=== PATIENT | female | born 1955 | race Caucasian/White ===

== ENCOUNTER 2018-03-03 03:47 | Emergency (ER) | payer OTHER ==
[~2018-03-03] VITALS: Ht 167.6 cm; Wt 102.3 kg
[~2018-03-03 03:47] MED LIST: BIEST CREAM TOP; CHOL2000 PO; FLAX1CAP4 PO; MAGN400C PO; MULT-1085 PO; OMEG500C PO; PROGESTERONE CREAM TOP; TESTOSTERONE CREAM TOP; TURM500C7 PO; UBID10CA7 PO; ZOLM5TAB9 PO
[2018-03-03 04:49] LABS: BASOPHILS % (AUTO) 0.6 % (0-1); EOSINOPHILS # (AUTO) 0.1 X10'3 (0-0.9); EOSINOPHILS % (AUTO) 2.5 % (0-6); HEMOGLOBIN 14.9 g/dl (12.0-16.0); LYMPHOCYTES # (AUTO) 1.9 X10'3 (1.1-4.8); LYMPHOCYTES % (AUTO) 40.2 % (21-51); MEAN CORPUSCULAR HEMOGLOBIN 31.6 PG (27.0-31.0); MEAN CORPUSCULAR HGB CONC 35.5 % (33.0-36.5); MEAN CORPUSCULAR VOLUME 89.2 FL (78-98); MEAN PLATELET VOLUME 6.7 FL (7.4-10.4); MONOCYTES # (AUTO) 0.6 X10'3 (0-0.9); MONOCYTES % (AUTO) 12.5 % (2-12); NEUTROPHILS # (AUTO) 2.1 X10'3 (1.8-7.7); NEUTROPHILS % (AUTO) 44.2 % (42-75); PLATELET COUNT 280 X10'3 (140-440); RED BLOOD COUNT 4.71 X10'6 (4.20-5.60); WHITE BLOOD COUNT 4.8 X10'3 (4.5-11.0)
[2018-03-03 04:52] LABS: COLOR,URINE YELLOW (Yellow); GLUCOSE, URINE NEGATIVE (Neg); KETONES,URINE NEGATIVE (Neg); LEUKOCYTE ESTERASE ,URINE SMALL (Neg); NITRITES, URINE POSITIVE (Neg); OCCULT BLOOD,URINE MODERATE (Neg); PH,URINE 5.5 (4.8-8.0); PROTEIN,URINE NEGATIVE (Neg); UROBILINOGEN,URINE 0.2 E.U/dL (0.2-1.0)
[2018-03-03 04:56] LABS: CLARITY,URINE SLIGHTLY CLOUDY (Clear); UA COLLECTION TYPE CLN CATCH MIDSTREAM
[2018-03-03 05:00] LABS: PARTIAL THROMBOPLASTIN TIME 26 SECONDS (22-32); PROTHROMBIN TIME 10.4 SECONDS (9.0-12.0); WBC,URINE 30-50 /HPF (0-4)
[2018-03-03 05:01] LABS: BACTERIA,URINE 4+ /HPF (Neg); SQUAMOUS EPITHELIAL CELL,UR FEW /LPF (FEW)
[2018-03-03 05:03] LABS: ALANINE AMINOTRANSFERASE 37 U/L (12-78); ALBUMIN 3.7 G/DL (3.4-5.0); ALBUMIN/GLOBULIN RATIO 0.9 (1.1-1.5); ALKALINE PHOSPHATASE 85 IU/L (46-116); ANION GAP 13 (8-16); ASPARTATE AMINO TRANSFERASE 18 U/L (10-37); BILIRUBIN,TOTAL 0.5 MG/DL (0.1-1.0); BLOOD UREA NITROGEN 13 MG/DL (7-18); BUN/CREATININE RATIO 16.3 (6.6-38.0); CALCIUM 9.8 MG/DL (8.5-10.1); CHLORIDE 105 MMOL/L (99-107); GLUCOSE 129 MG/DL (70-104); LIPASE 111 U/L (73-393); POTASSIUM 3.6 MMOL/L (3.5-5.1); SODIUM 142 MMOL/L (135-145); TOTAL PROTEIN 7.9 G/DL (6.4-8.2); eGFR 72 ML/MIN
[2018-03-03] MEDS ORDERED: NITR100C6 PO (05:45)
[2018-03-03 06:01] VITALS: BP 172/75
== END 2018-03-03 06:03 | disposition home or self-care (01) ==
LOC: ER 03:47
DX: K42.9 Umbilical hernia without obstruction or gangrene (principal); N30.00 Acute cystitis without hematuria; G43.909 Migraine, unspecified, not intractable, without status migrainosus; Z88.8 Allergy status to other drugs, medicaments and biological substances; Z90.710 Acquired absence of both cervix and uterus; Z79.899 Other long term (current) drug therapy
CPT/HCPCS: 36415; 74176; 80053; 81001; 83690; 85025; 85610; 85730; 87077; 87088; 87186; 99285

== ENCOUNTER 2018-03-10 10:34 | Outpatient (CLI) | payer OTHER ==
[~2018-03-10 10:34] MED LIST changes: +NITR100C6 PO
[2018-03-10 12:23] LABS: BASOPHILS % (AUTO) 0.6 % (0-1); EOSINOPHILS # (AUTO) 0.2 X10'3 (0-0.9); EOSINOPHILS % (AUTO) 2.1 % (0-6); HEMATOCRIT 41.3 % (35.0-45.0); HEMOGLOBIN 14.4 g/dl (12.0-16.0); LYMPHOCYTES # (AUTO) 2.9 X10'3 (1.1-4.8); LYMPHOCYTES % (AUTO) 38.9 % (21-51); MEAN CORPUSCULAR HEMOGLOBIN 31.2 PG (27.0-31.0); MEAN CORPUSCULAR HGB CONC 34.7 % (33.0-36.5); MEAN CORPUSCULAR VOLUME 89.8 FL (78-98); MEAN PLATELET VOLUME 7.4 FL (7.4-10.4); MONOCYTES # (AUTO) 0.5 X10'3 (0-0.9); MONOCYTES % (AUTO) 6.2 % (2-12); NEUTROPHILS # (AUTO) 3.9 X10'3 (1.8-7.7); NEUTROPHILS % (AUTO) 52.2 % (42-75); PLATELET COUNT 352 X10'3 (140-440); RED CELL DISTRIBUTION WIDTH 12.5 % (11.5-14.5); WHITE BLOOD COUNT 7.5 X10'3 (4.5-11.0)
[2018-03-10 12:52] LABS: ALANINE AMINOTRANSFERASE 46 U/L (12-78); ALBUMIN 3.9 G/DL (3.4-5.0); ALKALINE PHOSPHATASE 87 IU/L (46-116); ANION GAP 12 (8-16); ASPARTATE AMINO TRANSFERASE 21 U/L (10-37); BILIRUBIN,TOTAL 0.6 MG/DL (0.1-1.0); BLOOD UREA NITROGEN 14 MG/DL (7-18); BUN/CREATININE RATIO 20.6 (6.6-38.0); C-REACTIVE PROTEIN 0.36 MG/DL (0.0-0.5); CALCIUM 9.7 MG/DL (8.5-10.1); CHLORIDE 106 MMOL/L (99-107); CHOL/HDL RATIO 4.5 (0.00-4.99); CHOLESTEROL 209 MG/DL (0-200); CREATININE 0.68 MG/DL (0.40-0.90); GLUCOSE 108 MG/DL (70-104); HDL CHOLESTEROL 46 MG/DL (35-60); LDL CHOLESTEROL 133 MG/DL (50-100); POTASSIUM 3.6 MMOL/L (3.5-5.1); SODIUM 142 MMOL/L (135-145); TOTAL CARBON DIOXIDE 23.8 MMOL/L (24-32); TOTAL PROTEIN 7.9 G/DL (6.4-8.2); TRIGLYCERIDES 148 MG/DL (20-135); eGFR 87 ML/MIN
[2018-03-11 09:47] LABS: PARATHYROID HORMONE 34.9 PG/ML (11-67)
== END 2018-03-10 23:59 | disposition home or self-care (01) ==
LOC: LAB 10:34
PROVIDERS: ATTEND Family Medicine
DX: E55.9 Vitamin D deficiency, unspecified (principal); E78.5 Hyperlipidemia, unspecified; M54.5 Low back pain; R74.8 Abnormal levels of other serum enzymes
CPT/HCPCS: 36415; 80053; 80061; 82306; 83970; 84439; 84443; 85025; 85651; 86140

== ENCOUNTER 2018-03-24 06:03 | Day surgery (SDC) | payer OTHER ==
[2018-03-23 15:26] LABS: UA COLLECTION TYPE NON-SPECIFIED
[2018-03-23 15:27] LABS: CLARITY,URINE CLEAR (Clear); COLOR,URINE YELLOW (Yellow); GLUCOSE, URINE NEGATIVE (Neg); KETONES,URINE NEGATIVE (Neg); LEUKOCYTE ESTERASE ,URINE NEGATIVE (Neg); NITRITES, URINE NEGATIVE (Neg); OCCULT BLOOD,URINE SMALL (Neg); PH,URINE 5.5 (4.8-8.0); PROTEIN,URINE NEGATIVE (Neg); UROBILINOGEN,URINE 0.2 E.U/dL (0.2-1.0)
[2018-03-23 15:54] LABS: BACTERIA,URINE 1+ /HPF (Neg); MUCUS STRANDS FEW /LPF (Neg); RBC,URINE NONE SEEN /HPF (0-2); SQUAMOUS EPITHELIAL CELL,UR FEW /LPF (FEW); WBC,URINE 0-4 /HPF (0-4)
[~2018-03-24] VITALS: Ht 167.6 cm; Wt 99.8 kg
[2018-03-24] VITALS (13 sets, daily range): BP systolic 123–158; BP diastolic 55–76
[~2018-03-24 06:03] MED LIST changes: -BIEST CREAM TOP; -CHOL2000 PO; -FLAX1CAP4 PO; -MAGN400C PO; +METH500C6 PO; -MULT-1085 PO; +NAPR220C15 PO; +NITR100C11; -NITR100C6 PO; -OMEG500C PO; -PROGESTERONE CREAM TOP; -TESTOSTERONE CREAM TOP; -TURM500C7 PO; -UBID10CA7 PO; +VERA120T96; +ceFAZolin inj. 2,000 MG in normal saline 100ml IV soln 100 ML IV ONE; +famotidine 20mg tablet PO ONE; +ringers solution, lacted 1,000 ML IV SCH
[2018-03-24] MEDS ORDERED: LIDOcaine 1% (10mg/ml) 2ml vial ONE (06:15)
[2018-03-24] MEDS ORDERED: epiNEPHrine 1 mg/ml inj ONE (08:52)
[2018-03-24] MEDS ORDERED: BUPIVAcaine/PF 2.5 mg/ml (0.25%) 30ml vial ONE (08:52)
[2018-03-24] MEDS ORDERED: ceFAZolin 1000mg inj ONE (08:52)
[2018-03-24] MEDS ORDERED: propofol inj 20 ML IV ONE (08:56)
[2018-03-24] MEDS ORDERED: rocuronium 10mg/ml inj IV ONE (08:56)
[2018-03-24] MEDS ORDERED: LIDOcaine 2% (20mg/ml) 5ml vial ONE (08:56)
[2018-03-24] MEDS ORDERED: fentaNYL/PF 50MCG/1 ML 2ML syringe ONE ×2 (08:57→09:19)
[2018-03-24] MEDS ORDERED: midazolam 2 mg/2 ml injection ONE (08:57)
[2018-03-24] MEDS ORDERED: ePHEDrine 50MG/ML INJ. ONE (09:20)
[2018-03-24] MEDS ORDERED: ondansetron/PF 4mg/2ml inj ONE (09:32)
[2018-03-24] MEDS ORDERED: glycopyrrolate 0.2mg/ml inj ONE (09:32)
[2018-03-24] MEDS ORDERED: neostigmine methylsulfate 1 MG/ML 10ml vial ONE (09:32)
[2018-03-24] MEDS ORDERED: ringers solution, lacted 1,000 ML IV SCH (09:41)
[2018-03-24] MEDS ORDERED: labetalol 5mg/ml 20ml inj. IV ONE (09:44)
[2018-03-24] MEDS ORDERED: ondansetron/PF 4mg/2ml inj IV PRN (09:45)
[2018-03-24] MEDS ORDERED: morphine 4 MG/ML inj SYRINge IV PRN ×3 (09:45)
[2018-03-24] MEDS: morphine 4 MG/ML inj SYRINge IV PRN ×2 (10:17→10:31)
[2018-03-24] MEDS ORDERED: HYDROcodone/acetaminophen 10/325mg tab PO ONE (11:25)
== END 2018-03-24 11:58 | disposition home or self-care (01) ==
LOC: PAS 06:03
PROVIDERS: ATTEND Surgery
DX: K43.6 Other and unspecified ventral hernia with obstruction, without gangrene (principal); M19.90 Unspecified osteoarthritis, unspecified site; I10 Essential (primary) hypertension; L90.5 Scar conditions and fibrosis of skin; L82.1 Other seborrheic keratosis; E66.9 Obesity, unspecified; G43.909 Migraine, unspecified, not intractable, without status migrainosus; Z90.89 Acquired absence of other organs; Z90.710 Acquired absence of both cervix and uterus; Z88.6 Allergy status to analgesic agent; Z68.35 Body mass index [BMI] 35.0-35.9, adult; Z98.890 Other specified postprocedural states; Z79.899 Other long term (current) drug therapy
CPT/HCPCS: 49653; 81001; 93005; C1713; C1758; C1781; J0171; J0690; J2001; J2250; J2270; J2405; J2704; J2710; J3010; J3490; J7030; J7120; A7000

== ENCOUNTER 2019-07-23 07:40 | Outpatient (CLI) | payer OTHER, MEDICARE ==
[~2019-07-23 07:40] MED LIST changes: +VERA120T9; -VERA120T96; -ceFAZolin inj. 2,000 MG in normal saline 100ml IV soln 100 ML IV ONE; -famotidine 20mg tablet PO ONE; -ringers solution, lacted 1,000 ML IV SCH
[2019-07-23 08:13] LABS: CLARITY,URINE CLEAR (Clear); COLOR,URINE STRAW (Yellow); GLUCOSE, URINE NEGATIVE (Neg); KETONES,URINE NEGATIVE (Neg); LEUKOCYTE ESTERASE ,URINE NEGATIVE (Neg); NITRITES, URINE NEGATIVE (Neg); OCCULT BLOOD,URINE SMALL (Neg); PH,URINE 7.5 (4.8-8.0); PROTEIN,URINE NEGATIVE (Neg); UROBILINOGEN,URINE 0.2 E.U/dL (0.2-1.0)
[2019-07-23 08:16] LABS: UA COLLECTION TYPE CLN CATCH MIDSTREAM
[2019-07-23 08:19] LABS: BACTERIA,URINE FEW /HPF (Neg); MUCUS STRANDS NONE SEEN /LPF (Neg); RBC,URINE 0-2 /HPF (0-2); SQUAMOUS EPITHELIAL CELL,UR FEW /LPF (FEW); WBC,URINE 0-4 /HPF (0-4)
[2019-07-23 08:21] LABS: BASOPHILS # (AUTO) 0.1 X10'3 (0-0.2); BASOPHILS % (AUTO) 0.8 % (0-1); EOSINOPHILS # (AUTO) 0.2 X10'3 (0-0.9); EOSINOPHILS % (AUTO) 3.2 % (0-6); HEMOGLOBIN 14.7 g/dl (12.0-16.0); LYMPHOCYTES # (AUTO) 2.4 X10'3 (1.1-4.8); LYMPHOCYTES % (AUTO) 34.4 % (21-51); MEAN CORPUSCULAR HEMOGLOBIN 31.6 PG (27.0-31.0); MEAN CORPUSCULAR HGB CONC 34.2 g/dL (33.0-36.5); MEAN CORPUSCULAR VOLUME 92.6 FL (78-98); MEAN PLATELET VOLUME 7.6 FL (7.4-10.4); MONOCYTES # (AUTO) 0.6 X10'3 (0-0.9); NEUTROPHILS # (AUTO) 3.7 X10'3 (1.8-7.7); NEUTROPHILS % (AUTO) 52.6 % (42-75); PLATELET COUNT 254 X10'3 (140-440); RED BLOOD COUNT 4.64 X10'6 (4.20-5.60); RED CELL DISTRIBUTION WIDTH 13.1 % (11.5-14.5); WHITE BLOOD COUNT 7.1 X10'3 (4.5-11.0)
[2019-07-23 08:48] LABS: ALANINE AMINOTRANSFERASE 41 U/L (12-78); ALBUMIN 3.9 G/DL (3.4-5.0); ALKALINE PHOSPHATASE 89 IU/L (46-116); ANION GAP 9 (8-16); ASPARTATE AMINO TRANSFERASE 20 U/L (10-37); BILIRUBIN,TOTAL 0.7 MG/DL (0.1-1.0); BLOOD UREA NITROGEN 17 MG/DL (7-18); C-REACTIVE PROTEIN 0.16 MG/DL (0.0-0.5); CALCIUM 9.6 MG/DL (8.5-10.1); CHLORIDE 104 MMOL/L (99-107); CHOL/HDL RATIO 5.3 (0.00-4.99); CHOLESTEROL 239 MG/DL (0-200); CREATININE 0.74 MG/DL (0.40-0.90); GLUCOSE 115 MG/DL (70-104); HDL CHOLESTEROL 45 MG/DL (35-60); LDL CHOLESTEROL 168 MG/DL (50-100); SODIUM 138 MMOL/L (135-145); TOTAL CARBON DIOXIDE 24.8 MMOL/L (24-32); TOTAL PROTEIN 7.9 G/DL (6.4-8.2); TRIGLYCERIDES 177 MG/DL (20-135); eGFR 79 ML/MIN
[2019-07-24 08:08] LABS: MICROALB/CRT, RATIO <11.3 mg/g creat (0.0-30.0)
[2019-07-26 05:13] LABS: VITAMIN D, 25-HYDROXY 29.8 ng/mL (30.0-100.0)
== END 2019-07-23 23:59 | disposition home or self-care (01) ==
LOC: LAB 07:40
PROVIDERS: ATTEND Family Medicine
DX: K57.30 Diverticulosis of large intestine without perforation or abscess without bleeding (principal); K57.92 Diverticulitis of intestine, part unspecified, without perforation or abscess without bleeding; E55.9 Vitamin D deficiency, unspecified; I10 Essential (primary) hypertension; E78.5 Hyperlipidemia, unspecified; F41.8 Other specified anxiety disorders; R73.02 Impaired glucose tolerance (oral); R74.8 Abnormal levels of other serum enzymes
CPT/HCPCS: 36415; 80053; 80061; 81001; 82043; 82306; 82570; 82607; 82746; 84439; 84443; 85025; 85651; 86140

== ENCOUNTER 2019-10-04 04:24 | Outpatient (CLI) | payer SELFPAY ==
[2019-10-04 09:35] LABS: CHOL/HDL RATIO 4.87 (0.00-4.99)
== END 2019-10-04 23:59 | disposition home or self-care (01) ==
LOC: HW HEART 04:24
DX: Z13.6 Encounter for screening for cardiovascular disorders (principal)
CPT/HCPCS: 36415

== ENCOUNTER 2020-01-28 06:56 | Emergency (ER) | payer OTHER, SELFPAY ==
[~2020-01-28] VITALS: Ht 167.6 cm; Wt 97.7 kg
[2020-01-28 07:21] LABS: CLARITY,URINE CLEAR (Clear); COLOR,URINE YELLOW (Yellow); GLUCOSE, URINE NEGATIVE (Neg); KETONES,URINE NEGATIVE (Neg); LEUKOCYTE ESTERASE ,URINE NEGATIVE (Neg); NITRITES, URINE NEGATIVE (Neg); OCCULT BLOOD,URINE TRACE-INTACT (Neg); PH,URINE 6.5 (4.8-8.0); PROTEIN,URINE NEGATIVE (Neg); UROBILINOGEN,URINE 0.2 E.U/dL (0.2-1.0)
[2020-01-28 07:23] LABS: UA COLLECTION TYPE CLN CATCH MIDSTREAM
[2020-01-28 07:29] LABS: BACTERIA,URINE 1+ /HPF (Neg); MUCUS STRANDS FEW /LPF (Neg); RBC,URINE 0-2 /HPF (0-2); SQUAMOUS EPITHELIAL CELL,UR MODERATE /LPF (FEW); WBC,URINE 0-4 /HPF (0-4)
[2020-01-28] MEDS ORDERED: ketorolac tromethamine 15mg/ml inj. IV ONE (07:35)
[2020-01-28] MEDS ORDERED: normal saline 1000ML IV soln IVB ONE (07:35)
[2020-01-28 07:56] LABS: BASOPHILS % (AUTO) 0.5 % (0-1); EOSINOPHILS # (AUTO) 0.1 X10'3 (0-0.9); EOSINOPHILS % (AUTO) 2.3 % (0-6); HEMATOCRIT 43.9 % (35.0-45.0); HEMOGLOBIN 15.2 g/dl (12.0-16.0); LYMPHOCYTES # (AUTO) 2.4 X10'3 (1.1-4.8); LYMPHOCYTES % (AUTO) 39.4 % (21-51); MEAN CORPUSCULAR HEMOGLOBIN 31.6 PG (27.0-31.0); MEAN CORPUSCULAR HGB CONC 34.6 g/dL (33.0-36.5); MEAN CORPUSCULAR VOLUME 91.2 FL (78-98); MEAN PLATELET VOLUME 6.8 FL (7.4-10.4); MONOCYTES # (AUTO) 0.5 X10'3 (0-0.9); MONOCYTES % (AUTO) 7.8 % (2-12); PLATELET COUNT 289 X10'3 (140-440); RED BLOOD COUNT 4.81 X10'6 (4.20-5.60); WHITE BLOOD COUNT 6.1 X10'3 (4.5-11.0)
[2020-01-28 08:15] LABS: ALANINE AMINOTRANSFERASE 49 U/L (12-78); ALBUMIN 4.3 G/DL (3.4-5.0); ALBUMIN/GLOBULIN RATIO 1.2 (1.1-1.5); ALKALINE PHOSPHATASE 96 IU/L (46-116); ANION GAP 8 (8-16); ASPARTATE AMINO TRANSFERASE 23 U/L (10-37); BILIRUBIN,TOTAL 0.6 MG/DL (0.1-1.0); BLOOD UREA NITROGEN 10 MG/DL (7-18); BUN/CREATININE RATIO 13.5 (6.6-38.0); C-REACTIVE PROTEIN 0.59 MG/DL (0.0-0.5); CALCIUM 10.2 MG/DL (8.5-10.1); CHLORIDE 104 MMOL/L (99-107); CREATININE 0.74 MG/DL (0.40-0.90); GLUCOSE 117 MG/DL (70-104); LIPASE 120 U/L (73-393); POTASSIUM 4.1 MMOL/L (3.5-5.1); SODIUM 139 MMOL/L (135-145); TOTAL CARBON DIOXIDE 26.9 MMOL/L (24-32); eGFR 79 ML/MIN
[2020-01-28] MEDS ORDERED: NAPR-56 PO (10:00)
[2020-01-28 10:37] VITALS: BP 173/82
== END 2020-01-28 10:40 | disposition home or self-care (01) ==
LOC: ER 06:57
DX: S39.012A Strain of muscle, fascia and tendon of lower back, initial encounter (principal); I10 Essential (primary) hypertension; Z90.710 Acquired absence of both cervix and uterus; Z98.890 Other specified postprocedural states; Z88.8 Allergy status to other drugs, medicaments and biological substances; Z79.899 Other long term (current) drug therapy; X58.XXXA Exposure to other specified factors, initial encounter; Y93.89 Activity, other specified; Y92.89 Other specified places as the place of occurrence of the external cause; Y99.8 Other external cause status
CPT/HCPCS: 36415; 74176; 80053; 81001; 83690; 85025; 86140; 96374; 99284; J1885; J7030

== ENCOUNTER 2022-01-31 10:42 | Outpatient (CLI) | payer BC ==
[~2022-01-31 10:42] MED LIST changes: +NAPR-56 PO; +VERA120T86; -VERA120T9
[2022-01-31 11:35] LABS: CLARITY,URINE CLEAR (Clear); GLUCOSE, URINE NEGATIVE (Neg); KETONES,URINE NEGATIVE (Neg); LEUKOCYTE ESTERASE ,URINE NEGATIVE (Neg); NITRITES, URINE NEGATIVE (Neg); OCCULT BLOOD,URINE TRACE-INTACT (Neg); PH,URINE 6.5 (4.8-8.0); PROTEIN,URINE NEGATIVE (Neg); UROBILINOGEN,URINE 0.2 E.U/dL (0.2-1.0)
[2022-01-31 11:37] LABS: BASOPHILS % (AUTO) 0.6 % (0-1); EOSINOPHILS # (AUTO) 0.2 X10'3 (0-0.9); EOSINOPHILS % (AUTO) 2.4 % (0-6); HEMATOCRIT 40.8 % (35.0-45.0); HEMOGLOBIN 13.9 g/dl (12.0-16.0); LYMPHOCYTES # (AUTO) 2.4 X10'3 (1.1-4.8); MEAN CORPUSCULAR HEMOGLOBIN 31.8 PG (27.0-31.0); MEAN CORPUSCULAR HGB CONC 34.2 g/dL (33.0-36.5); MONOCYTES # (AUTO) 0.6 X10'3 (0-0.9); MONOCYTES % (AUTO) 8.2 % (2-12); NEUTROPHILS # (AUTO) 3.6 X10'3 (1.8-7.7); NEUTROPHILS % (AUTO) 53.8 % (42-75); PLATELET COUNT 309 X10'3 (140-440); RED BLOOD COUNT 4.38 X10'6 (4.20-5.60); RED CELL DISTRIBUTION WIDTH 13.3 % (11.5-14.5); WHITE BLOOD COUNT 6.8 X10'3 (4.5-11.0)
[2022-01-31 11:41] LABS: COLOR,URINE STRAW (Yellow); UA COLLECTION TYPE CLN CATCH MIDSTREAM
[2022-01-31 11:43] LABS: BACTERIA,URINE 3+ /HPF (Neg); MUCUS STRANDS NONE SEEN /LPF (Neg); RBC,URINE 0-2 /HPF (0-2); SQUAMOUS EPITHELIAL CELL,UR MODERATE /LPF (FEW); WBC CLUMPS,URINE FEW /HPF (NEGATIVE)
[2022-01-31 11:44] LABS: TRANSITIONAL EPI CELLS,URINE FEW /HPF
[2022-01-31 12:14] LABS: ALANINE AMINOTRANSFERASE 38 U/L (12-78); ALBUMIN 3.9 G/DL (3.4-5.0); ALKALINE PHOSPHATASE 85 IU/L (46-116); ANION GAP 9 (8-16); ASPARTATE AMINO TRANSFERASE 18 U/L (10-37); BILIRUBIN,TOTAL 0.5 MG/DL (0.1-1.0); BLOOD UREA NITROGEN 15 MG/DL (7-18); BUN/CREATININE RATIO 21.4 (6.6-38.0); C-REACTIVE PROTEIN 0.54 MG/DL (0.0-0.5); CALCIUM 9.3 MG/DL (8.5-10.1); CHLORIDE 105 MMOL/L (99-107); CHOL/HDL RATIO 4.6 (0.00-4.99); CHOLESTEROL 218 MG/DL (0-200); GLUCOSE 104 MG/DL (70-104); HDL CHOLESTEROL 47 MG/DL (35-60); LDL CHOLESTEROL 141 MG/DL (50-100); POTASSIUM 3.9 MMOL/L (3.5-5.1); SODIUM 139 MMOL/L (135-145); TOTAL CARBON DIOXIDE 25.5 MMOL/L (24-32); TRIGLYCERIDES 177 MG/DL (20-135); eGFR 83 ML/MIN
== END 2022-01-31 23:59 | disposition home or self-care (01) ==
LOC: LAB 10:42
PROVIDERS: ATTEND Family Medicine
DX: I10 Essential (primary) hypertension (principal); R73.02 Impaired glucose tolerance (oral); K57.92 Diverticulitis of intestine, part unspecified, without perforation or abscess without bleeding; N39.0 Urinary tract infection, site not specified; E55.9 Vitamin D deficiency, unspecified; R74.8 Abnormal levels of other serum enzymes; E78.5 Hyperlipidemia, unspecified
CPT/HCPCS: 36415; 80053; 80061; 81001; 82306; 82607; 82746; 85025; 85651; 86140; 87077; 87088; 87186

== ENCOUNTER 2022-09-23 07:34 | Emergency (ER) | payer MEDICARE, BC ==
[~2022-09-23] VITALS: Ht 167.6 cm; Wt 102.3 kg
[2022-09-23 08:47] LABS: BASOPHILS % (AUTO) 0.6 % (0-1); EOSINOPHILS # (AUTO) 0.1 X10'3 (0-0.9); EOSINOPHILS % (AUTO) 1.2 % (0-6); HEMATOCRIT 41.2 % (35.0-45.0); HEMOGLOBIN 14.3 g/dl (12.0-16.0); LYMPHOCYTES # (AUTO) 2.5 X10'3 (1.1-4.8); LYMPHOCYTES % (AUTO) 33.9 % (21-51); MEAN CORPUSCULAR HGB CONC 34.8 g/dL (33.0-36.5); MEAN PLATELET VOLUME 6.6 FL (7.4-10.4); MONOCYTES # (AUTO) 0.5 X10'3 (0-0.9); MONOCYTES % (AUTO) 6.6 % (2-12); NEUTROPHILS # (AUTO) 4.3 X10'3 (1.8-7.7); NEUTROPHILS % (AUTO) 57.7 % (42-75); PLATELET COUNT 281 X10'3 (140-440); RED BLOOD COUNT 4.48 X10'6 (4.20-5.60); WHITE BLOOD COUNT 7.5 X10'3 (4.5-11.0)
[2022-09-23 08:57] LABS: ALANINE AMINOTRANSFERASE 47 U/L (12-78); ALBUMIN/GLOBULIN RATIO 1.1 (1.1-1.5); ALKALINE PHOSPHATASE 86 IU/L (46-116); ANION GAP 10 (8-16); ASPARTATE AMINO TRANSFERASE 22 U/L (10-37); BILIRUBIN,TOTAL 0.6 MG/DL (0.1-1.0); BLOOD UREA NITROGEN 12 MG/DL (7-18); BUN/CREATININE RATIO 15.8 (6.6-38.0); CALCIUM 9.9 MG/DL (8.5-10.1); CHLORIDE 103 MMOL/L (99-107); CREATININE 0.76 MG/DL (0.40-0.90); GLUCOSE 138 MG/DL (70-104); LIPASE 81 U/L (73-393); POTASSIUM 3.8 MMOL/L (3.5-5.1); SODIUM 138 MMOL/L (135-145); TOTAL CARBON DIOXIDE 24.7 MMOL/L (24-32); TOTAL PROTEIN 7.7 G/DL (6.4-8.2); eGFR 76 ML/MIN
[2022-09-23 09:11] LABS: CLARITY,URINE CLEAR (Clear); GLUCOSE, URINE NEGATIVE (Neg); KETONES,URINE NEGATIVE (Neg); LEUKOCYTE ESTERASE ,URINE NEGATIVE (Neg); NITRITES, URINE NEGATIVE (Neg); OCCULT BLOOD,URINE TRACE-INTACT (Neg); PROTEIN,URINE NEGATIVE (Neg); UROBILINOGEN,URINE 0.2 E.U/dL (0.2-1.0)
[2022-09-23 09:12] LABS: COLOR,URINE STRAW (Yellow); UA COLLECTION TYPE CLN CATCH MIDSTREAM
[2022-09-23 09:31] LABS: BACTERIA,URINE FEW /HPF (Neg); RBC,URINE 0-2 /HPF (0-2); SQUAMOUS EPITHELIAL CELL,UR FEW /LPF (FEW); WBC,URINE 0-4 /HPF (0-4)
[2022-09-23 10:30] VITALS: BP 121/65
== END 2022-09-23 10:31 | disposition home or self-care (01) ==
LOC: ER 07:34
DX: R10.84 Generalized abdominal pain (principal); I10 Essential (primary) hypertension; G43.909 Migraine, unspecified, not intractable, without status migrainosus; Z90.710 Acquired absence of both cervix and uterus; Z98.890 Other specified postprocedural states; Z88.5 Allergy status to narcotic agent
CPT/HCPCS: 36415; 74176; 80053; 81001; 83690; 85025; 99284

== ENCOUNTER 2022-12-17 06:02 | Day surgery (SDC) | payer BC ==
[2022-12-11 16:03] LABS: CLARITY,URINE SLIGHTLY CLOUDY (Clear); COLOR,URINE YELLOW (Yellow); GLUCOSE, URINE NEGATIVE (Neg); KETONES,URINE NEGATIVE (Neg); LEUKOCYTE ESTERASE ,URINE TRACE (Neg); NITRITES, URINE POSITIVE (Neg); OCCULT BLOOD,URINE TRACE-INTACT (Neg); PH,URINE 6.5 (4.8-8.0); PROTEIN,URINE NEGATIVE (Neg); UROBILINOGEN,URINE 0.2 E.U/dL (0.2-1.0)
[2022-12-11 16:10] LABS: BASOPHILS # (AUTO) 0.1 X10'3 (0-0.2); BASOPHILS % (AUTO) 0.7 % (0-1); EOSINOPHILS # (AUTO) 0.2 X10'3 (0-0.9); EOSINOPHILS % (AUTO) 2.3 % (0-6); LYMPHOCYTES # (AUTO) 3.5 X10'3 (1.1-4.8); LYMPHOCYTES % (AUTO) 40.6 % (21-51); MEAN CORPUSCULAR HEMOGLOBIN 32.2 PG (27.0-31.0); MEAN CORPUSCULAR HGB CONC 34.4 g/dL (33.0-36.5); MEAN CORPUSCULAR VOLUME 93.7 FL (78-98); MEAN PLATELET VOLUME 6.9 FL (7.4-10.4); MONOCYTES # (AUTO) 0.7 X10'3 (0-0.9); MONOCYTES % (AUTO) 7.5 % (2-12); NEUTROPHILS # (AUTO) 4.3 X10'3 (1.8-7.7); NEUTROPHILS % (AUTO) 48.9 % (42-75); PRE OP HEMATOCRIT 43.6 % (35.0-45.0); PRE OP PLATELET COUNT 332 X10'3 (140-440); RED BLOOD COUNT 4.66 X10'6 (4.20-5.60)
[2022-12-11 16:13] LABS: UA COLLECTION TYPE NON-SPECIFIED
[2022-12-11 16:14] LABS: BACTERIA,URINE 4+ /HPF (Neg); RBC,URINE 0-2 /HPF (0-2); SQUAMOUS EPITHELIAL CELL,UR MODERATE /LPF (FEW)
[2022-12-11 16:14] LABS: ALBUMIN 4.3 G/DL (3.4-5.0); ALBUMIN/GLOBULIN RATIO 1.1 (1.1-1.5); ALKALINE PHOSPHATASE 94 IU/L (46-116); BLOOD UREA NITROGEN 16 MG/DL (7-18); BUN/CREATININE RATIO 21.3 (6.6-38.0); CHLORIDE 103 MMOL/L (99-107); CREATININE 0.75 MG/DL (0.40-0.90); PRE OP ALT 41 U/L (30-65); PRE OP ANION GAP 11 (8-16); PRE OP AST 25 U/L (10-37); PRE OP BILIRUB, TOTAL 0.4 MG/DL (0.0-1.0); PRE OP GLUCOSE 130 MG/DL (70-104); PRE OP POTASSIUM 3.7 MMOL/L (3.4-5.1); PRE OP SODIUM 140 MMOL/L (135-145); TOTAL CARBON DIOXIDE 26.2 MMOL/L (24-32); TOTAL PROTEIN 8.1 G/DL (6.4-8.2); eGFR 77 ML/MIN
[~2022-12-17] VITALS: Ht 162.6 cm; Wt 108.0 kg
[2022-12-17 05:30] VITALS: BP 145/66
[~2022-12-17 06:02] MED LIST changes: +ALBU18HF2 INH; +ASPI-612 PO; +FLAX SEED OIL; +FLO44IN IH; +LOSA100T57 PO; -METH500C6 PO; +MULT-1085 PO; -NAPR-56 PO; -NAPR220C15 PO; +NAPR375T5 PO; -NITR100C11; +OREGANO; +RED RICE YEAST; +TUMERIC; -VERA120T86; +VERA180T59 PO; +VIT B 12; +VIT D; +ceFAZolin inj. 2,000 MG in dextrose 5%-water 100 ML IV ONE; +famotidine 20mg tablet PO ONE; +levoFLOXACIN-Levaquin 500mg/D5 100 ML IV ONE; +ringers solution, lacted 1,000 ML IV SCH
[2022-12-17] MEDS ORDERED: BUPIVAcaine 0.5% inj/PF 30 ML ONE (06:52)
[2022-12-17] MEDS ORDERED: bacitracin 15gm ointment TP ONE (06:52)
[2022-12-17] MEDS ORDERED: ceFAZolin 1000mg inj ONE (06:52)
[2022-12-17] MEDS ORDERED: sevoflurane 250ml liquid IH ONE (07:20)
[2022-12-17] MEDS ORDERED: piperacillin/tazobactam inj. 3.375 GM in NS 50ml IV ONE (07:20)
[2022-12-17] MEDS ORDERED: acetaminophen 1,000mg/100ml IV 100 ML IV PRN (07:25)
[2022-12-17] MEDS ORDERED: morphine 4 MG/ML inj SYRINge IV PRN (07:25)
[2022-12-17] MEDS ORDERED: HYDROmorphone/PF 0.2 MG/ML SYRINGE IV PRN ×2 (07:25)
[2022-12-17] MEDS ORDERED: hydrALAZINE 20mg/ml inj. IV PRN (07:25)
[2022-12-17] MEDS ORDERED: ringers solution, lacted 1,000 ML IV SCH (07:25)
[2022-12-17] MEDS ORDERED: proCHLORperazine 10 MG/2 ml inj IV PRN (07:25)
[2022-12-17] MEDS ORDERED: morphine 2 MG/ML inj. syringe IV PRN (07:25)
[2022-12-17] MEDS ORDERED: ondansetron/PF 4mg/2ml inj IV PRN (07:25)
[2022-12-17] MEDS ORDERED: labetalol 20mg/4ml (5mg/ml) syringe IV PRN (07:25)
[2022-12-17] MEDS ORDERED: fentaNYL/PF 50MCG/1 ML 2ML syringe ONE (07:26)
[2022-12-17] MEDS ORDERED: midazolam 1 mg/ML 2ml injection ONE (07:37)
[2022-12-17] MEDS ORDERED: ondansetron/PF 4mg/2ml inj ONE (07:42)
[2022-12-17] MEDS ORDERED: dexamethasone sod phosphate 4mg/ml inj. ONE (07:42)
[2022-12-17] MEDS ORDERED: LIDOcaine 2% (20mg/ml) 5ml vial ONE (07:54)
[2022-12-17] MEDS ORDERED: propofol inj 20 ML IV ONE (07:54)
[2022-12-17] MEDS ORDERED: BUPIVAcaine 0.5% inj/PF 30 ml vial IJ ONE (07:57)
[2022-12-17 08:20] VITALS: BP 133/78
--- NOTE | 2022-12-17 08:20 | NUR ---
Received from OR via , accompanied by Anesthesiologist and report given by Anesthesiolgist. PATIENT A&OX4, DENIES PAIN, V/S WNL, SCD ON , PIV 20G RUE, DERMABONDED right chest incision, ABDOMEN dressing cdi.
[2022-12-17 08:30] VITALS: BP 139/95
[2022-12-17 08:40] VITALS: BP 129/89
[2022-12-17 08:50] VITALS: BP 131/81
[2022-12-17 09:00] VITALS: BP 129/86
--- NOTE | 2022-12-17 09:00 | NUR ---
PATIENT A&OX4, DENIES PAIN, V/S WNL, SCD OFF , PIV 20G RUE D/C, DERMABONDED right chest incision, ABDOMEN dressing cdi. I HAVE REVIEWED D/C INSTRUCTIONS W/ PATIENT AND THEY HAVE VERBALIZED UNDERSTANDING. PATIENT D/C HOME WITH ALL BELONGINGS AND GAVE TRANSPORT
== END 2022-12-17 09:00 | disposition home or self-care (01) ==
LOC: PAS 06:02
PROVIDERS: ATTEND Surgery
DX: T81.89XA Other complications of procedures, not elsewhere classified, initial encounter (principal); N60.01 Solitary cyst of right breast; J45.909 Unspecified asthma, uncomplicated; I10 Essential (primary) hypertension; G43.909 Migraine, unspecified, not intractable, without status migrainosus; M19.90 Unspecified osteoarthritis, unspecified site; E66.9 Obesity, unspecified; Z68.41 Body mass index [BMI] 40.0-44.9, adult; Z88.8 Allergy status to other drugs, medicaments and biological substances; Z87.440 Personal history of urinary (tract) infections; Z90.710 Acquired absence of both cervix and uterus; Z98.890 Other specified postprocedural states; Z72.89 Other problems related to lifestyle; Z79.899 Other long term (current) drug therapy; Y83.8 Other surgical procedures as the cause of abnormal reaction of the patient, or of later complication, without mention of misadventure at the time of the procedure; Y92.89 Other specified places as the place of occurrence of the external cause
CPT/HCPCS: 13160; 19120; 36415; 80053; 81001; 82948; 85025; 87077; 87088; 87186; 93005; J1100; J2250; J2405; J2704; J3010; J3490; J7030; J7120; S0020; Z7506; Z7512; A4215; A4618; A7000; J0690; J1956; J7060

== ENCOUNTER 2022-12-30 10:41 | Outpatient (CLI) | payer BC ==
[~2022-12-30 10:41] MED LIST changes: -ceFAZolin inj. 2,000 MG in dextrose 5%-water 100 ML IV ONE; -famotidine 20mg tablet PO ONE; -levoFLOXACIN-Levaquin 500mg/D5 100 ML IV ONE; -ringers solution, lacted 1,000 ML IV SCH
[2022-12-30 11:11] LABS: CLARITY,URINE CLOUDY (Clear); COLOR,URINE YELLOW (Yellow); GLUCOSE, URINE NEGATIVE (Neg); KETONES,URINE NEGATIVE (Neg); LEUKOCYTE ESTERASE ,URINE NEGATIVE (Neg); NITRITES, URINE NEGATIVE (Neg); OCCULT BLOOD,URINE TRACE-INTACT (Neg); PH,URINE 5.5 (4.8-8.0); PROTEIN,URINE NEGATIVE (Neg); UROBILINOGEN,URINE 0.2 E.U/dL (0.2-1.0)
[2022-12-30 11:16] LABS: UA COLLECTION TYPE CLN CATCH MIDSTREAM
[2022-12-30 11:17] LABS: SQUAMOUS EPITHELIAL CELL,UR MANY /LPF (FEW)
[2022-12-30 11:18] LABS: MUCUS STRANDS MODERATE /LPF (Neg)
[2022-12-30 11:21] LABS: BACTERIA,URINE FEW /HPF (Neg); RBC,URINE 0-2 /HPF (0-2); TRANSITIONAL EPI CELLS,URINE FEW /HPF; WBC,URINE 0-4 /HPF (0-4)
== END 2022-12-30 23:59 | disposition home or self-care (01) ==
LOC: LAB 10:41
PROVIDERS: ATTEND Surgery
DX: R30.0 Dysuria (principal)
CPT/HCPCS: 81001; 87088

== ENCOUNTER 2024-03-18 07:53 | Outpatient (CLI) | payer BC ==
[~2024-03-18 07:53] MED LIST changes: -LOSA100T57 PO; +LOSA100T58 PO
[2024-03-18 08:28] LABS: BASOPHILS % (AUTO) 0.8 % (0-1); EOSINOPHILS # (AUTO) 0.2 X10'3 (0-0.9); HEMATOCRIT 41.1 % (35.0-45.0); HEMOGLOBIN 14.3 g/dl (12.0-16.0); LYMPHOCYTES # (AUTO) 2.8 X10'3 (1.1-4.8); LYMPHOCYTES % (AUTO) 44.9 % (21-51); MEAN CORPUSCULAR HEMOGLOBIN 32.2 PG (27.0-31.0); MEAN CORPUSCULAR HGB CONC 34.7 g/dL (33.0-36.5); MEAN CORPUSCULAR VOLUME 92.7 FL (78-98); MEAN PLATELET VOLUME 6.9 FL (7.4-10.4); MONOCYTES # (AUTO) 0.6 X10'3 (0-0.9); MONOCYTES % (AUTO) 9.1 % (2-12); NEUTROPHILS # (AUTO) 2.6 X10'3 (1.8-7.7); NEUTROPHILS % (AUTO) 42.2 % (42-75); PLATELET COUNT 285 X10'3 (140-440); RED BLOOD COUNT 4.44 X10'6 (4.20-5.60); RED CELL DISTRIBUTION WIDTH 13.1 % (11.5-14.5); WHITE BLOOD COUNT 6.3 X10'3 (4.5-11.0)
[2024-03-18 08:46] LABS: ALANINE AMINOTRANSFERASE 44 U/L (12-78); ALBUMIN 3.6 G/DL (3.4-5.0); ALBUMIN/GLOBULIN RATIO 0.9 (1.1-1.5); ALKALINE PHOSPHATASE 98 IU/L (46-116); ANION GAP 10 (8-16); ASPARTATE AMINO TRANSFERASE 24 U/L (10-37); BILIRUBIN,TOTAL 0.7 MG/DL (0.1-1.0); BLOOD UREA NITROGEN 19 MG/DL (7-18); BUN/CREATININE RATIO 24.4 (10.0-20.0); CALCIUM 9.6 MG/DL (8.5-10.1); CHLORIDE 101 MMOL/L (99-107); CHOL/HDL RATIO 4.6 (0.00-4.99); CHOLESTEROL 216 MG/DL (0-200); CREATININE 0.78 MG/DL (0.40-0.90); GLUCOSE 187 MG/DL (70-104); HDL CHOLESTEROL 47 MG/DL (35-60); LDL CHOLESTEROL 144 MG/DL (50-100); SODIUM 136 MMOL/L (135-145); TOTAL CARBON DIOXIDE 25.4 MMOL/L (24-32); TOTAL PROTEIN 7.6 G/DL (6.4-8.2); TRIGLYCERIDES 215 MG/DL (20-135); eGFR 73 ML/MIN
[2024-03-19 14:52] LABS: CREATININE, URINE 116.6 mg/dL (Not Estab.); MICROALBUMIN,U,RANDOM 11.6 ug/mL (Not Estab.)
== END 2024-03-18 23:59 | disposition home or self-care (01) ==
LOC: LAB 07:53
PROVIDERS: ATTEND Family Medicine
DX: M17.0 Bilateral primary osteoarthritis of knee (principal); M16.0 Bilateral primary osteoarthritis of hip; I10 Essential (primary) hypertension; E78.5 Hyperlipidemia, unspecified
CPT/HCPCS: 36415; 73521; 73560; 80053; 80061; 82043; 82570; 85025

== ENCOUNTER → 2024-05-06 | Outpatient (CLI) | payer BC ==
[2024-05-06 15:46] LABS: BILIRUBIN,URINE NEGATIVE (Neg); COLOR,URINE YELLOW (Yellow); GLUCOSE, URINE NEGATIVE (Neg); KETONES,URINE TRACE mg/dl (Neg); LEUKOCYTE ESTERASE ,URINE NEGATIVE (Neg); NITRITES, URINE NEGATIVE (Neg); OCCULT BLOOD,URINE NEGATIVE (Neg); PH,URINE 5.5 (4.8-8.0); PROTEIN,URINE NEGATIVE (Neg); UROBILINOGEN,URINE 0.2 E.U/dL (0.2-1.0)
[2024-05-06 16:35] LABS: CLARITY,URINE Cloudy (Clear); UA COLLECTION TYPE NON-SPECIFIED
[2024-05-06 16:36] LABS: AMORPHOUS URATES 2+; BACTERIA,URINE NONE SEEN /HPF (Neg); MUCUS STRANDS NONE SEEN /LPF (Neg); RBC,URINE 0-2 /HPF (0-2); SQUAMOUS EPITHELIAL CELL,UR NONE SEEN /LPF (FEW); WBC,URINE NONE SEEN /HPF (0-4)
== END | disposition home or self-care (01) ==
LOC: RAD 14:59
PROVIDERS: ATTEND Nurse Practitioner Family
DX: N39.0 Urinary tract infection, site not specified (principal); R30.0 Dysuria
CPT/HCPCS: 81001

== ENCOUNTER 2024-10-14 14:20 | Outpatient (CLI) | payer BC ==
[~2024-10-14 14:20] MED LIST changes: +NAPR-1479 PO; -NAPR375T5 PO
[2024-10-14 15:12] LABS: BASOPHILS % (AUTO) 0.7 % (0-1); EOSINOPHILS # (AUTO) 0.2 X10'3 (0-0.9); EOSINOPHILS % (AUTO) 2.8 % (0-6); HEMATOCRIT 41.7 % (35.0-45.0); HEMOGLOBIN 14.1 g/dl (12.0-16.0); LYMPHOCYTES # (AUTO) 2.3 X10'3 (1.1-4.8); LYMPHOCYTES % (AUTO) 35.9 % (21-51); MEAN CORPUSCULAR HEMOGLOBIN 31.9 PG (27.0-31.0); MEAN CORPUSCULAR HGB CONC 33.9 g/dL (33.0-36.5); MEAN PLATELET VOLUME 7.6 FL (7.4-10.4); MONOCYTES # (AUTO) 0.5 X10'3 (0-0.9); MONOCYTES % (AUTO) 7.2 % (2-12); NEUTROPHILS # (AUTO) 3.5 X10'3 (1.8-7.7); NEUTROPHILS % (AUTO) 53.4 % (42-75); PLATELET COUNT 296 X10'3 (140-440); RED BLOOD COUNT 4.44 X10'6 (4.20-5.60); RED CELL DISTRIBUTION WIDTH 13.3 % (11.5-14.5); WHITE BLOOD COUNT 6.5 X10'3 (4.5-11.0)
[2024-10-14 15:17] LABS: HEMOGLOBIN A1C 8.5 % (4.5-6.2)
[2024-10-14 15:29] LABS: ALANINE AMINOTRANSFERASE 45 U/L (12-78); ALKALINE PHOSPHATASE 93 IU/L (46-116); ANION GAP 8 (8-16); ASPARTATE AMINO TRANSFERASE 34 U/L (10-37); BILIRUBIN,TOTAL 0.8 MG/DL (0.1-1.0); BLOOD UREA NITROGEN 11 MG/DL (7-18); BUN/CREATININE RATIO 13.8 (10.0-20.0); CALCIUM 9.4 MG/DL (8.5-10.1); CHLORIDE 102 MMOL/L (99-107); CHOL/HDL RATIO 4.2 (0.00-4.99); CHOLESTEROL 206 MG/DL (0-200); GLUCOSE 131 MG/DL (70-104); HDL CHOLESTEROL 49 MG/DL (35-60); LDL CHOLESTEROL 127 MG/DL (50-100); POTASSIUM 3.7 MMOL/L (3.5-5.1); SODIUM 138 MMOL/L (135-145); THYROID STIMULATING HORMONE 0.85 ulU/ml (0.34-4.50); TOTAL CARBON DIOXIDE 28.1 MMOL/L (24-32); TOTAL PROTEIN 8.1 G/DL (6.4-8.2); TRIGLYCERIDES 141 MG/DL (20-135); eGFR 71 ML/MIN
== END 2024-10-14 23:59 | disposition home or self-care (01) ==
LOC: RAD 14:20
PROVIDERS: ATTEND Nurse Practitioner
DX: I10 Essential (primary) hypertension (principal); M19.90 Unspecified osteoarthritis, unspecified site; E78.5 Hyperlipidemia, unspecified
CPT/HCPCS: 36415; 80053; 80061; 83036; 84443; 85025

== ENCOUNTER 2025-05-18 12:09 | Outpatient (CLI) | payer BC ==
[2025-05-18 13:06] LABS: ALANINE AMINOTRANSFERASE 27 U/L (12-78); ALBUMIN/GLOBULIN RATIO 1.1 (1.1-1.5); ALKALINE PHOSPHATASE 73 IU/L (46-116); ANION GAP 9 (8-16); ASPARTATE AMINO TRANSFERASE 18 U/L (10-37); BILIRUBIN,TOTAL 0.5 MG/DL (0.1-1.0); BLOOD UREA NITROGEN 34 MG/DL (7-18); BUN/CREATININE RATIO 37.8 (10.0-20.0); CALCIUM 10.1 MG/DL (8.5-10.1); CHLORIDE 103 MMOL/L (99-107); GLUCOSE 97 MG/DL (70-104); POTASSIUM 3.9 MMOL/L (3.5-5.1); SODIUM 137 MMOL/L (135-145); TOTAL CARBON DIOXIDE 24.8 MMOL/L (24-32); TOTAL PROTEIN 7.7 G/DL (6.4-8.2); eGFR 62 ML/MIN
[2025-05-18 13:22] LABS: HEMOGLOBIN A1C 5.7 % (4.5-6.2)
== END 2025-05-18 23:59 | disposition home or self-care (01) ==
LOC: RAD 12:09
PROVIDERS: ATTEND Family Medicine
DX: E11.9 Type 2 diabetes mellitus without complications (principal); R53.83 Other fatigue; I10 Essential (primary) hypertension; E78.5 Hyperlipidemia, unspecified
CPT/HCPCS: 36415; 80053; 83036

== ENCOUNTER 2025-10-12 11:20 | Day surgery (SDC) | payer BC ==
[2025-10-05 15:53] LABS: MEAN PLATELET VOLUME 6.7 FL (7.4-10.4); PRE OP HEMATOCRIT 44.5 % (35.0-45.0); PRE OP HEMOGLOBIN 15.1 g/dL (12.0-16.0); PRE OP PLATELET COUNT 315 X10'3 (140-440); PRE OP WHITE BLOOD COUNT 7.3 10'3 (4.8-10.8); RED CELL DISTRIBUTION WIDTH 13.6 % (11.5-14.5)
[2025-10-05 16:09] LABS: CREATININE 0.62 MG/DL (0.40-0.90); PRE OP ALT 20 U/L (30-65); PRE OP ANION GAP 7 (8-16); PRE OP BILIRUB, TOTAL 0.8 MG/DL (0.0-1.0); PRE OP GLUCOSE 89 MG/DL (70-104); PRE OP SODIUM 137 MMOL/L (135-145); TOTAL CARBON DIOXIDE 25.0 MMOL/L (24-32); eGFR > 90 ML/MIN
[2025-10-05 16:11] LABS: PRE OP AST 20 U/L (10-37); PRE OP POTASSIUM 3.8 MMOL/L (3.4-5.1)
--- NOTE | 2025-10-05 16:30 | RADIOLOGY REPORT ---
CHEST RADIOGRAPH Indication: PREOP Technique: Frontal and lateral view of the chest was obtained Comparison: DI HIP,BI,CMPLT(AP PELVIS) on DOS: 03/18/24 FINDINGS: Lines and Tubes: None Lungs: Clear Pleura: No effusion. No pneumothorax. Cardiomediastinal contours: Unremarkable Bones: Unremarkable IMPRESSION: No evidence of acute disease.
[2025-10-12] VITALS (26 sets, daily range): BP systolic 109–171; BP diastolic 52–88; PULSE 73–106; RESP 10–20; TEMP 97.5; O2SAT 95–100
[~2025-10-12] VITALS: Ht 167.6 cm; Wt 85.0 kg
[~2025-10-12 11:20] MED LIST changes: -ASPI-612 PO; +DAPA5TAB PO; -FLAX SEED OIL; -FLO44IN IH; +METF-436 PO; -NAPR-1479 PO; -OREGANO; +PRE5T PO; +SEMA1PEN3 SUBCUT; -TUMERIC; -VERA180T59 PO; -VIT B 12; -VIT D; -ZOLM5TAB9 PO
[2025-10-12] MEDS ORDERED: cloNIDine hcl/PF 100mcg/ml inj ONE (11:23)
[2025-10-12] MEDS ORDERED: vancomycin 1,000mg inj ONE (11:23)
[2025-10-12] MEDS ORDERED: ketorolac trometh 30MG/ML vial 30 MG/ML VIAL ONE (11:23)
[2025-10-12] MEDS ORDERED: ROPIVAcaine 0.5% (5mg/ml) 30ml vial ONE (11:24)
[2025-10-12] MEDS: VANCOMYCIN/H2O 1.5g/300mL PB 300 ML IV ONE (12:23)
[2025-10-12] MEDS: ringers solution, lacted 1,000 ML IV SCH ×2 (12:23→15:05)
[2025-10-12] MEDS: ceFAZolin 2gm/dext,iso 50mL 50 ML IV ONE (12:23)
[2025-10-12] MEDS ORDERED: midazolam 1 mg/ML 2ml injection ONE (12:47)
[2025-10-12] MEDS ORDERED: fentaNYL /PF 50mcg/ml 5ml ampule ONE (12:47)
[2025-10-12] MEDS ORDERED: propofol inj 20 ML IV ONE (12:49)
[2025-10-12] MEDS ORDERED: hydrALAZINE 20mg/ml inj. IV PRN (13:25)
[2025-10-12] MEDS ORDERED: labetalol 20mg/4ml (5mg/ml) syringe IV PRN (13:25)
[2025-10-12] MEDS ORDERED: HYDROmorphone/PF 0.2 MG/ML SYRINGE IV PRN (13:25)
[2025-10-12] MEDS ORDERED: ondansetron/PF 4mg/2ml inj IV PRN (13:25)
--- NOTE | 2025-10-12 14:38 | OPERATIVE REPORT ---
Operative Report Operative Report OPERATIVE REPORT DATE of SERVICE: 10/12/2025 PREOPERATIVE DIAGNOSIS: Left knee osteoarthritis, varus POSTOPERATIVE DIAGNOSIS: same SURGICAL PROCEDURE: Left total knee arthroplasty CPT code number 91573. INDICATIONS: Patient is a 70 year-old woman with a history of progressive worsening left knee pain. They have maximized nonoperative measures which have included activity modification, medications, intra-articular injections. Despite these conservative measures, they have continual progressively worsening knee pain as well as deformity. On physical examination they have severe varus alignment, well healed previous open surgical scars on the skin. Range of motion is 15- 100 degrees of flexion. No gross ligamentous instability, and with a valgus stress the MCL is a good endpoint. Otherwise, they are neurovascularly intact. Radiographs reveal advanced osteoarthritis withmedial compartment complete joint space loss, sclerosis, osteophytes. They were offered a knee replacement and elected to proceed. Risks, benefits and alternatives were discussed in detail at the preoperative appointment, especially the risk of infection requiring multiple surgeries, implant removal versus amputation, stiffness requiring manipulation, instability, fracture, nerve or vascular injury, persistent pain, as well as others. They elected to proceed. FINDINGS: Flexion contracture, limited terminal flexion, severe varus, significant loose bodies, bone on bone articulation, sclerosis, synovial fluid cysts SURGERY IN DETAIL: Patient was taken into the Operating Room, placed supine on the operating table. Preoperatively, they were administered weight based dosing of antibiotics , 1.5 gm vancomycin, 2 gm Kefzol. They were administered GETA anesthesia. Tourniquet was placed on the left proximal thigh. The left lower extremity was prepped and draped in sterile fashion. Surgical pause was performed, correctly identifying the patient's name, the correct extremity, correct surgical procedure. An anterior parapatellar incision approximately 12-15 cm in length was made. The skin and subcutaneous tissues sharply dissected. The deep fascia was identified superiorly, Darin's fascia, and incised in line with skin incision. The quadriceps tendon, medial patellar retinaculum, patellar tendon were v isualized. A medial parapatellar arthrotomy was performed. The proximal and medial tibia were subperiosteally exposed for a distance of 1.5 cm from joint line. The deep infrapatellar bursa was incised. The patella was everted. The knee was flexed while protecting the insertion of the patellar tendon. A 3/8 inch curved osteotome was used to enter the semimembranosus bursa at the level of the joint line medially. The medial meniscus was excised at the meniscal synovial junction. The anterior cruciate ligament was excised. The posterior cruciate ligament was excised from the intercondylar region with electrocautery and a posterior retractor was placed, subluxing tibia anterolateral to the femur. A hernia was made anterolateral to the lateral meniscus and a right angle retractor was placed. A lateral meniscectomy was performed. The inferolateral geniculate artery was coagulated. The tibia was reduced under the femur. The Orthalign, kneealign system was placed on the distal femur and placed through motion in accordance with the program. The distal femoral cutting guide was set on neutral mechanical alignment to the femoral head center of rotation and at a depth of 12mm. A distal femoral osteotomy was performed. The alignment jig was removed. The tibia was subluxed anterolateral to the femur and a posterior retractor and an anteromediall retractor were placed. The orthalign jig was then placed, and steps were taken to align the cutting jig with a goal of a neutral mechanical axis, perpendicular cut, removing 2-4 mm from the med tibial plateau, and 10-12 from the lateral tibial plateau. The tibia was sized to size 5 base plate. The knee was brought into full extension and the extension gap measured 17 mm. The knee was flexed, and the flexion gap balancing tower was placed. The tower was tensioned to 17, size 6 which was felt to be appropriate and co nsistent with the extension gap. The two anterior pins were pinned. The tower was then removed. A size 6 distal femoral cutting jig was placed over these two pins and secured with two lateral locking pins. An anterior and a posterior condylar cut were performed, followed by an anterior chamfer and a posterior chamfer cut. Cutting jig was removed. An intercondylar box cutting jig was then secured on the distal femur at the appropriate translation and secured with two pins. An intercondylar box osteotomy was performed. The trial tibial base plate,sz 5, with a 10 mm cruciate-retaining polyethylene and a trial distal femur were inserted. Knee was brought to full extension. Both flexion and extension gaps were felt to be appropriate, range of motion from 0-110+ degrees, good stability to the MCL. The knee had full extension and flexion to greater than 110 degrees. The rotation of the tibial component was marked. The patella was everted and the osteochondral junction exposed. The patella measured 26 mm in thickness. A patellar osteotomy was performed leaving 17 mm remnant patella. Three lug holes were then drilled for the 35 diameter patellar button. The knee underwent patellar tracking. Everything was central, symmetric and balanced. The trial components were removed. The tibia was subluxed anterior to the femur and a posterior and an anterolateral retractor were placed. The tibial base plate drill guide was secured with two pins, and the modular baseplate hole was created with appropriate drills and punches. Exposed bony surfaces were thoroughly irrigated and dried. Cement was mixed at the back table, the appropriate time and consistency was introduced onto the tibia, finger pressurized, and the tibial baseplate was inserted, extruded cement removed. Cement was then applied to exposed bone of the femur, as well as the posterior condylar portion prostheses, and the femoral component was inserted, extruded cement removed. A trial 10 mm thick polyethylene was inserted. Knee was brought to full extension as axial compression was applied. Cement was then applied to the patella, as well as the patellar button, which was clamped in position. After cement completely dried, the knee was flexed, the trial polyethylene was removed. Scored cement was removed with a straight osteotome. A formal size 5-6, 10 mm thick polyethylene was then inserted, confirmed seated and locked. The knee was reduced. Tourniquet was deflated. Hemostasis obtained. The arthrotomy was closed with #2 stratafix suture. Subcutaneous tissues irrigated, closed with #0 vicryl in an inverted, figure of 8 fashion, followed by #2-0 Vicryl in an inverted, interrupted fashion. The skin was closed with stratafix. A sterile dressing was applied. Sponge, needle and instrument counts were correct at the end of the case. ESTIMATED BLOOD LOSS: 200 cc. TT: None CULTURES: None. Infection control : Laminar flow, Leonor hoods, IOBAN, double glove, OR discipline, iv ancef + vancomycin on induction, thorough wash at end of surgery including dilute betadine, 1g vanco powder deep wound, silver and ALEXEI dressing, minimal dressing changes till wound healed. DVT prophylaxis : Contralateral calf pump intra-op, calf pumps post op, ASA 325mg daily x 6 weeks, early mobilization. PATHOLOGY: Bone. DRAINS: None IMPLANTS: A [employer] BCS knee, femur size 6 , tibia size 5 , polyethylene size 5-6, 10 mm thick, patella 35, asymmetric. DISPOSITION: Stable to Recovery Room. NAME OF SURGEONS AND ASSISTANTS: Surgeon: Andre Rivera MD Bakery Supervisor Surgeon: None Anesthesiologist: Trace Milan MD I am prescribing a cryo knee brace to help relieve symptomatic pain from the patient's knee replacement surgery. This will help increase joint range of motion by limiting inflammation and swelling following knee replacement surgery as well as aid in the healing process. This was fitted and placed by myself following the surgery and is to be worn following discharge home. ANDRE RIVERA MD Oct 12, 2025 14:38
[2025-10-12] MEDS: acetaminophen 1,000mg/100ml IV 100 ML IV PRN (14:40)
[2025-10-12] MEDS: HYDROmorphone/PF 0.2 MG/ML SYRINGE IV PRN (14:40)
[2025-10-12] MEDS: morphine 4 MG/ML inj SYRINge IV PRN (15:37)
[2025-10-12] MEDS: oxyCODONE/APAP 5-325mg tablet PO ONE (16:07)
== END 2025-10-12 18:52 | disposition home or self-care (01) ==
LOC: PAS 11:20
PROVIDERS: ATTEND Orthopaedic Surgery
DX: M17.12 Unilateral primary osteoarthritis, left knee (principal); E11.9 Type 2 diabetes mellitus without complications; I10 Essential (primary) hypertension; Z90.710 Acquired absence of both cervix and uterus; Z85.828 Personal history of other malignant neoplasm of skin; Z98.890 Other specified postprocedural states
CPT/HCPCS: 27447; 36415; 71046; 80053; 82948; 85025; 97110; 97161; 97530; A6454; C1713; C1776; J0131; J0169; J0735; J1171; J1885; J2250; J2270; J2704; J2795; J3010; J3373; J3375; J7030; J7120; Z7506; Z7508; Z7512; A4215; A4618

== ENCOUNTER 2025-11-27 15:28 | Outpatient (CLI) | payer BC ==
--- NOTE | 2025-11-27 16:43 | RADIOLOGY REPORT ---
CLINICAL INDICATION: 6 WEEK POST-OP REPEAT XRAY FOR HEALING TECHNIQUE: DI KNEE 3 VWS COMPARISON: DI KNEE LIMITED (AP/LAT) on DOS: 03/18/24, DI KNEE LIMITED (AP/LAT) on DOS: 03/18/24 FINDINGS/IMPRESSION: : There is no evidence of acute fracture or dislocation. Soft tissues are unremarkable. Left knee arthroplasty.
== END 2025-11-27 23:59 | disposition home or self-care (01) ==
LOC: RAD 15:28
PROVIDERS: ATTEND Physician Assistant
DX: M17.12 Unilateral primary osteoarthritis, left knee (principal); Z96.652 Presence of left artificial knee joint
CPT/HCPCS: 73562